=== PATIENT | male | born 1955 | race Caucasian/White ===

== ENCOUNTER 2016-07-22 14:59 | Outpatient (CLI) | payer BC, OTHER | END 2016-07-22 15:00 | disposition home or self-care (01) | DX: M25.512 Pain in left shoulder (principal) ==

== ENCOUNTER 2022-01-04 09:45 | Outpatient (CLI) | payer OTHER, MEDICARE ==
--- NOTE | 2022-01-04 16:33 | MRI Report ---
PROCEDURE: Lumbar Spine W/O INDICATIONS: BACK PAIN, RIGHT CALF NUMBNESS TECHNIQUE: Noncontrast sagittal T1 spin echo and T2 fast echo, sagittal STIR, axial T1 and T2 fast spin echo thr ough the lumbar spine. In cases with scoliosis, additional coronal T2 fast spin echo may be performe d. COMPARISON: None. FINDINGS: Image quality: Excellent. Alignment and Curvature: There is appearance of transitional anatomy with what appears to be lumbari zation of the first sacral vertebral body. For purposes of this exam, vertebral bodies are labeled on e through 5. Bone Marrow: Marrow is of normal overall signal. Mild reactive endplate changes are present at L4-5 . No acute vertebral body compression fractures. Spinal Cord: Conus medullaris terminates at the L1 level. Visualized cord demonstrates normal signa l and size. Paraspinous Soft Tissues: No paravertebral masses. Discs: Moderate severe desiccation is present at L4-5, mild throughout the remainder of the lumbar sp ine. T12-L1: No disc bulge, spinal stenosis or foraminal narrowing. L1-L2: No disc bulge, spinal stenosis or foraminal narrowing. Mild facet hypertrophy. Mild epidura l lipomatosis. L2-L3: Mild disc bulge with effacement of the posterior right thecal sac secondary to prominent fa cet and ligamentum flavum rapidly. Moderate right foraminal narrowing. L3-L4: Mild disc bulge with moderate spinal stenosis. Moderate left and [id number] right fora bethanie narrowing with facet and ligamentum flavum hypertrophy. Epidural lipomatosis. L4-L5: Mild disc bulge with moderate to severe spinal stenosis. Severe left foraminal narrowing wit h set and ligamentum flavum hypertrophy. L5-S1: Mild disc bulge with minimal to mild spinal stenosis. No foraminal narrowing. Facet hypertro phy is present. IMPRESSION: Multilevel disc bulges. Spinal stenosis is most severe at L4-5 secondary to disc bulge with contributing effect of facet/liga ment of flavum arthropathy. Multilevel foraminal narrowing most severe at L4-5 secondary to facet arthropathy. Reviewed by: Carolyn Zuniga MD on 01/04/2022 4:32 PM PDT Approved by: Carolyn Zuniga MD on 01/04/2022 4:32 PM PDT Station ID: [id number]
== END 2022-01-04 09:46 | disposition home or self-care (01) ==
LOC: DI 09:45
PROVIDERS: ATTEND Internal Medicine
DX: M47.816 Spondylosis without myelopathy or radiculopathy, lumbar region (principal); M51.36 Other intervertebral disc degeneration, lumbar region; M48.061 Spinal stenosis, lumbar region without neurogenic claudication; M48.07 Spinal stenosis, lumbosacral region; M51.86 Other intervertebral disc disorders, lumbar region

== ENCOUNTER 2022-01-08 05:51 | Emergency (ER) | payer MEDICARE, OTHER ==
[2022-01-08] MEDS ORDERED: diphenhydrAMINE INJ 50 MG/ML VIAL IVP STA (06:20)
[2022-01-08] MEDS ORDERED: FAMOTIDINE 20 MG/2 ML VIAL IVP STA (06:20)
[2022-01-08] MEDS ORDERED: methylPREDNISolone SUCCINATE 125 MG/2 ML VIAL IVP STA (06:21)
[2022-01-08] MEDS ORDERED: OXYMETAZOLINE HCL 100 SPRAYS BOTTLE NAS STA (06:21)
--- NOTE | 2022-01-08 06:32 | ED Physician Documentation ---
History of Present Illness - Stated complaint Stated Complaint: BEE STING/FACE SWELLING - Chief complaint Chief Complaint: Allergic Rx - History obtained from History obtained from: Patient - History of Present Illness Timing: Last night - Additonal information Additional information: 66-year-old male presents for allergic reaction since yesterday. Patient was stung twice in the face by either a bee or a hornet and subsequently his face has continued to become more swollen and puffy. He states that he has taken several doses of 25 mg Benadryl at home without relief. He states that something happened several years ago and he was evaluated at the [place]. He was found to not have true anaphylactic reaction to bees, he was just noted to be "very sensitive" Patient endorses significant swelling around his eyes and he cannot breathe through his nose, denies tongue swelling, lip swelling, throat swelling, nausea, vomiting, other complaints at this time. Review of Systems Ten Systems: 10 systems reviewed and negative Constitutional: denies: Fever, Chills Eyes: denies: Loss of vision, Decreased vision, Discharge Nose: reports: Congestion. denies: Rhinorrhea / runny nose, Epistaxis Throat: denies: Dental pain / toothache, Oral lesions / sores, Sore throat, Swollen tonsils, Swallowed foreign body Cardiac: denies: Chest pain / pressure, Palpitations Respiratory: denies: Dyspnea, Cough, Wheezing GI: denies: Abdominal Pain, Nausea, Vomiting Skin: reports: Bite / sting. denies: Rash PD PAST MEDICAL HISTORY - Past Medical History Past Medical History: No Cardiovascular: None Respiratory: None Neuro: None Endocrine/Autoimmune: None GI: None : None HEENT: None Psych: None Musculoskeletal: None Derm: None - Past Surgical History Past Surgical History: Yes Ortho: Knee replacement - Present Medications Home Medications: Ambulatory Orders Medication Instructions Recorded Confirmed diphenhydrAMINE [Benadryl] 25 mg PO ONCE 01/08/22 01/08/22 predniSONE [Deltasone] 40 mg PO DAILY 5 Days #10 tablet 01/08/22 - Allergies Allergies/Adverse Reactions: Allergies Allergy/AdvReac Type Severity Reaction Status Date / Time paper tape Allergy Rash Uncoded 01/08/22 06:05 - Social History Does the pt smoke?: No Does the pt drink ETOH?: Yes Does the pt have substance abuse?: No - Immunizations Immunizations are current?: Yes - POLST Patient has POLST: No PD ED PE NORMAL - Vitals Vital signs reviewed: Yes - General General: Alert and oriented X 3, No acute distress, Well developed/nourished - HEENT HEENT: Atraumatic, PERRL, Other (significant facial swelling, especially periorbital) - Neck Neck: Supple, no meningeal sign, No bony TTP, No adenopathy, C-Spine cleared by NEXUS criteria - Cardiac Cardiac: RRR, No murmur, Strong equal pulses - Respiratory Respiratory: No respiratory distress, Clear bilaterally - Abdomen Abdomen: Soft, Non tender, Non distended, No organomegaly - Back Back: No CVA TTP, No spinal TTP - Derm Derm: Normal color, Warm and dry, No rash - Extremities Extremities: No deformity, No tenderness to palpate, Normal ROM s pain, No edema - Neuro Neuro: Alert and oriented X 3, 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 Patient is very taken Benadryl at home without relief. Airway intact, no stridor, no wheezing, no tongue swelling, no lip swelling. Allergy cocktail given to patient Departure - Departure Disposition: 01 Home, Self Care Clinical Impression: Insect bites and stings Qualifiers: Encounter type: initial encounter Qualified Code(s): W57.XXXA - Bitten or stung by nonvenomous insect and other nonvenomous arthropods, initial encounter Allergic reaction Qualifiers: Encounter type: initial encounter Qualified Code(s): T78.40XA - Allergy, unspecified, initial encounter Instructions: ED Allergic Reaction General Other, ED Bite Sting Insect Gen Allergic React Prescriptions: predniSONE [Deltasone] 40 mg PO DAILY 5 Days #10 tablet Comments: TAKE BENADRYL NEEDED PER DRUG LABEL FOR SWELLING. YOU MAY ALSO TAKE PEPCID FOR ALLERGIC SWELLING DIRECTED ON BOTTLE. TAKE ALL STEROIDS PRESCRIBED. RETURN IMMEDIATELY FOR WORSENING SWELLING OR TROUBLES BREATHING.
--- NOTE | 2022-01-08 07:55 | ED Physician Documentation ---
ED Addendum - Addendum Addendum: 01/08/22 07:54 Recheck of the patient's approximately an hour after change of shift. He states he is starting to feel less pressure of the swelling around the periorbital area and upper lip. Still no feeling of swelling in the tongue throat or airway. No trouble breathing or swallowing. At this point a feel he is able to be discharged as not showing any signs of angioedema. Still with puffiness around both eyes consistent with local allergic reaction to the sting on his forehead.
[2022-01-08 08:04] VITALS: BP 154/99
== END 2022-01-08 08:15 | disposition home or self-care (01) ==
LOC: ED 05:51
DX: T63.441A Toxic effect of venom of bees, accidental (unintentional), initial encounter (principal); R60.0 Localized edema
CPT/HCPCS: 96374; 96375; 99282; 99284; A9270; J1200